=== PATIENT | male | born 1950 | race Hispanic/Latino ===

== ENCOUNTER 2017-10-08 07:20 | Day surgery (SDC) | payer MEDICARE ==
[2017-10-08 08:04] VITALS: BMI 25.0
[2017-10-08] MEDS ORDERED: Propofol 10 mg/ml Inj (20 ML) ONE ×2 (08:58→09:15)
[2017-10-08] MEDS ORDERED: Lidocaine Hydrochloride 5 ML INJ ONE (09:05)
[2017-10-08] MEDS ORDERED: ePHEDrine 50 mg/ml Inj ONE (09:07)
[2017-10-08 12:39] VITALS: BP 148/79; PULSE 78; RESP 19; TEMP 96.9; O2SAT 98
== END 2017-10-08 10:45 | disposition home or self-care (01) ==
LOC: C.ENDO 07:20
PROVIDERS: ATTEND Internal Medicine
DX: K57.90 Diverticulosis of intestine, part unspecified, without perforation or abscess without bleeding (principal); D12.3 Benign neoplasm of transverse colon
CPT/HCPCS: 45388; 88305; J2704